=== PATIENT | female | born 1930 | race Asian ===

== ENCOUNTER 2018-07-29 15:25 | Inpatient (IN) | payer MEDICARE, OTHER ==
[2018-07-29 15:49] LABS: ADD MAN DIFF? NO
[2018-07-29 15:52] LABS: BASOPHIL # 0.1 10^3/ul (0.0-0.1); BASOPHILS % 0.7 % (0.0-2.0); EOSINOPHILS # 0.1 10^3/ul (0.0-0.5); EOSINOPHILS % 1.5 % (0.0-7.0); HEMATOCRIT 36.6 % (37.0-47.0); HEMOGLOBIN 11.5 g/dl (12.0-16.0); LYMPHOCYTES # 2.4 10^3/ul (0.8-2.9); MEAN CORPUSCULAR HEMOGLOBIN 29.3 pg (29.0-33.0); MEAN CORPUSCULAR HGB CONC 31.4 g/dl (32.0-37.0); MEAN CORPUSCULAR VOLUME 93.4 fl (82.0-101.0); MEAN PLATELET VOLUME 10.5 fl (7.4-10.4); MONOCYTE # 1.1 10^3/ul (0.3-0.9); MONOCYTES % 14.9 % (0.0-11.0); NEUTROPHIL # 3.8 10^3/ul (1.6-7.5); NEUTROPHILS % 50.6 % (39.0-77.0); PLATELET COUNT 150 10^3/UL (140-415); RED BLOOD COUNT 3.92 10^6/ul (4.20-5.40); RED CELL DISTRIBUTION WIDTH 13.2 % (11.5-14.5)
[2018-07-29 15:52] LABS: WHITE BLOOD COUNT 7.6 10^3/ul (4.8-10.8)
[2018-07-29] MEDS: DEXAMETHASONE 10 MG/ML 1 ML INJ IV (15:56)
[2018-07-29 16:09] LABS: ANION GAP 12 (5-13); BLOOD UREA NITROGEN 58 mg/dl (7-20); CALCIUM 8.2 mg/dl (8.4-10.2); CARBON DIOXIDE 16 mmol/L (21-31); CHLORIDE 111 mmol/L (97-110); CREATININE 2.68 mg/dl (0.44-1.00); GLUCOSE 173 mg/dl (70-220); SODIUM 139 mmol/L (135-144)
[2018-07-29 16:21] LABS: TROPONIN-I 0.014 ng/ml (0.000-0.120)
[2018-07-29] MEDS: SODIUM CHLORIDE 0.9% 1L BAG IV* (16:45)
[2018-07-29] MEDS: CEFTRIAXONE 1 GM/50 ML (PMX) 50 ML IVPB (17:00)
[2018-07-29] MEDS: AZITHROMYCIN 500MG/NS (PMX) 250 ML IV (17:25)
[2018-07-29] MEDS ORDERED: NACL 0.9% 3 ML SYG IV (19:00)
[2018-07-29] MEDS ORDERED: HYDROCODONE/APAP (5/325) TAB PO (19:00)
[2018-07-29 19:19] LABS: LACTIC ACID 3.1 mmol/L (0.5-2.0)
[2018-07-29] MEDS ORDERED: ACETAMINOPHEN 325 MG TAB PO (19:30)
[2018-07-29] MEDS ORDERED: ONDANSETRON 4 MG INJ IV (19:30)
[2018-07-29] MEDS: HEPARIN 5,000 UNIT/1 ML VIAL SC (21:00)
[2018-07-29 22:36] LABS: LACTIC ACID 4.5 mmol/L (0.5-2.0)
[2018-07-29] MEDS: SOD CHLORIDE 0.9% 500 ML IV (23:00)
[2018-07-30] MEDS: ALBUTEROL/IPRATROPIUM (NEB) 3 ML AMP HHN ×6 (04:31→21:05)
[2018-07-30 05:40] LABS: ADD MAN DIFF? NO
[2018-07-30 06:04] LABS: WHITE BLOOD COUNT 5.5 10^3/ul (4.8-10.8)
[2018-07-30 06:04] LABS: BASOPHILS % 0.2 % (0.0-2.0); HEMATOCRIT 32.3 % (37.0-47.0); HEMOGLOBIN 10.4 g/dl (12.0-16.0); LYMPHOCYTES # 1.1 10^3/ul (0.8-2.9); LYMPHOCYTES % 20.3 % (15.0-51.0); MEAN CORPUSCULAR HEMOGLOBIN 29.8 pg (29.0-33.0); MEAN CORPUSCULAR HGB CONC 32.2 g/dl (32.0-37.0); MEAN CORPUSCULAR VOLUME 92.6 fl (82.0-101.0); MEAN PLATELET VOLUME 11.1 fl (7.4-10.4); MONOCYTE # 0.2 10^3/ul (0.3-0.9); NEUTROPHIL # 4.1 10^3/ul (1.6-7.5); NEUTROPHILS % 75.1 % (39.0-77.0); PLATELET COUNT 143 10^3/UL (140-415); RED BLOOD COUNT 3.49 10^6/ul (4.20-5.40); RED CELL DISTRIBUTION WIDTH 13.3 % (11.5-14.5)
[2018-07-30 06:18] LABS: HEMOGLOBIN A1C 5.9 % (0-5.9)
[2018-07-30 06:28] LABS: ALANINE AMINOTRANSFERASE 26 IU/L (13-69); ALBUMIN 3.1 g/dl (3.3-4.9); ALBUMIN/GLOBULIN RATIO 0.86; ALKALINE PHOSPHATASE 84 IU/L (42-121); ANION GAP 11 (5-13); ASPARTATE AMINO TRANSFERASE 25 IU/L (15-46); BILIRUBIN,INDIRECT 0.1 mg/dl (0-1.1); BILIRUBIN,TOTAL 0.1 mg/dl (0.2-1.3); BLOOD UREA NITROGEN 48 mg/dl (7-20); CALCIUM 7.8 mg/dl (8.4-10.2); CARBON DIOXIDE 14 mmol/L (21-31); CHLORIDE 118 mmol/L (97-110); CREATININE 2.09 mg/dl (0.44-1.00); GLUCOSE 159 mg/dl (70-220); POTASSIUM 5.8 mmol/L (3.5-5.1); SODIUM 143 mmol/L (135-144); TOTAL PROTEIN 6.7 g/dl (6.1-8.1)
[2018-07-30 06:42] LABS: LACTIC ACID 2.4 mmol/L (0.5-2.0)
[2018-07-30] MEDS: SOD CHLORIDE 0.9% 500 ML IV (06:59)
[2018-07-30] MEDS: HEPARIN 5,000 UNIT/1 ML VIAL SC (09:00)
[2018-07-30] MEDS: AZITHROMYCIN 250 MG TAB PO (09:05)
[2018-07-30] MEDS: predniSONE 20 MG TAB PO (09:06)
[2018-07-30 12:00] LABS: LACTIC ACID 3.5 mmol/L (0.5-2.0)
[2018-07-30] MEDS: CEFTRIAXONE 1 GM/50 ML (PMX) 50 ML IVPB (16:06)
[2018-07-30] MEDS ORDERED: VANCOMYCIN IV PER PHARMACY XX (18:30)
[2018-07-30] MEDS: VANCOMYCIN HCL 1.25 GM in SOD CHLORIDE 0.9% 250 ML IVPB (20:29)
[2018-07-31] MEDS: ALBUTEROL/IPRATROPIUM (NEB) 3 ML AMP HHN ×6 (01:52→20:48)
[2018-07-31] MEDS: AZITHROMYCIN 250 MG TAB PO (09:05)
[2018-07-31] MEDS: predniSONE 20 MG TAB PO (09:05)
[2018-07-31] MEDS: CEFTRIAXONE 1 GM/50 ML (PMX) 50 ML IVPB (13:55)
[2018-08-01] MEDS: ALBUTEROL/IPRATROPIUM (NEB) 3 ML AMP HHN ×4 (01:58→23:28)
[2018-08-01 05:44] LABS: BLOOD UREA NITROGEN 53 mg/dl (7-20)
[2018-08-01 05:44] LABS: CREATININE 2.41 mg/dl (0.44-1.00)
[2018-08-01] MEDS ORDERED: MIDAZOLAM 1 MG/ML 2 ML INJ (07:00)
[2018-08-01] MEDS: AZITHROMYCIN 250 MG TAB PO (09:44)
[2018-08-01] MEDS: predniSONE 20 MG TAB PO (09:44)
[2018-08-01] MEDS: METOPROLOL (XL) 50 MG TAB PO (15:20)
[2018-08-01] MEDS: CEFTRIAXONE 1 GM/50 ML (PMX) 50 ML IVPB (15:20)
[2018-08-01] MEDS: LEVALBUTEROL (NEB) 0.31 MG/3 ML AMP HHN (19:38)
[2018-08-01] MEDS ORDERED: VANCOMYCIN 750 MG (PMX) 250 ML IVPB (20:00)
[2018-08-01] MEDS ORDERED: VANCOMYCIN 1 GM 250 ML IVPB (20:00)
[2018-08-01 21:28] LABS: ANION GAP 10 (5-13); BLOOD UREA NITROGEN 62 mg/dl (7-20); CARBON DIOXIDE 14 mmol/L (21-31); CHLORIDE 112 mmol/L (97-110); GLUCOSE 175 mg/dl (70-220); SODIUM 136 mmol/L (135-144)
[2018-08-01] MEDS: DEXTROSE 50% 50 ML SYRINGE IV (22:37)
[2018-08-01] MEDS: INSULIN REGULAR, HUMAN 100 UNIT/1 ML 3ML VIAL IVP (22:46)
[2018-08-01] MEDS: SODIUM POLYSTYRENE 15 GM KIT (POWDER + SORBITOL) PO (23:16)
[2018-08-01 23:31] LABS: AADO2 Arterial 24.8 mmHg (7.0-24.0); Arterial Blood Gas Oxygen Sat 98.4 mmHG (95.0-100.0); Arterial COHb 0.3 % (0.0-3.0); Arterial Fraction of Oxyhgb 97.9 % (93.0-99.0); Arterial HCO3 15.1 mmol/L (22.0-26.0); Arterial MetHb 0.2 % (0.0-1.5); Arterial pCO2 30.6 mmhg (35-45); MODE NASAL CANNULA; Site LB
[2018-08-02] MEDS: LEVALBUTEROL (NEB) 0.31 MG/3 ML AMP HHN ×4 (02:08→20:25)
[2018-08-02 06:15] LABS: WHITE BLOOD COUNT 10.1 10^3/ul (4.8-10.8)
[2018-08-02 06:15] LABS: HEMATOCRIT 30.7 % (37.0-47.0); HEMOGLOBIN 9.9 g/dl (12.0-16.0); MEAN CORPUSCULAR HEMOGLOBIN 29.6 pg (29.0-33.0); MEAN CORPUSCULAR HGB CONC 32.2 g/dl (32.0-37.0); MEAN CORPUSCULAR VOLUME 91.9 fl (82.0-101.0); MEAN PLATELET VOLUME 11.7 fl (7.4-10.4); PLATELET COUNT 156 10^3/UL (140-415); RED BLOOD COUNT 3.34 10^6/ul (4.20-5.40); RED CELL DISTRIBUTION WIDTH 13.4 % (11.5-14.5)
[2018-08-02 06:19] LABS: ADD MAN DIFF? YES; POSITIVE DIFF @See below
[2018-08-02 06:47] LABS: ANION GAP 8 (5-13); BLOOD UREA NITROGEN 64 mg/dl (7-20); CALCIUM 8.2 mg/dl (8.4-10.2); CARBON DIOXIDE 15 mmol/L (21-31); CHLORIDE 116 mmol/L (97-110); CREATININE 2.19 mg/dl (0.44-1.00); GLUCOSE 101 mg/dl (70-220); POTASSIUM 5.3 mmol/L (3.5-5.1); SODIUM 139 mmol/L (135-144)
[2018-08-02 06:48] LABS: BLOOD UREA NITROGEN 64 mg/dl (7-20)
[2018-08-02] MEDS ORDERED: ADENOSINE 3 MG/ML SYRINGE IV (07:00)
[2018-08-02 07:29] LABS: GIANT THROMBO% (M) 7 % (0-0); LYMPHOCYTES #M 1.9 10^3/ul (0.8-2.9); LYMPHOCYTES % (M) 19 % (15-51); MONOCYTE #M 0.2 10^3/ul (0.3-0.9); MONOCYTES % (M) 2 % (0-11); PLATELET ESTIMATE NORMAL; REACTIVE LYMPHOCYTES #M 0.1 10^3/ul (0.0-0.0); REACTIVE LYMPHOCYTES% (M) 1 % (0-0); SEGMENTED NEUTROPHILS (M) % 78 % (39-77); SMUDGE%M 7 % (0-0)
[2018-08-02] MEDS: predniSONE 20 MG TAB PO (08:01)
[2018-08-02] MEDS: AZITHROMYCIN 250 MG TAB PO (08:01)
[2018-08-02] MEDS: METOPROLOL (XL) 50 MG TAB PO (08:01)
[2018-08-02] MEDS: CEFTRIAXONE 1 GM/50 ML (PMX) 50 ML IVPB (15:58)
== END 2018-08-02 23:20 | disposition home or self-care (01) | DRG 191 ==
LOC: 6WM 08-01 14:02 → E/R 15:25 → 2NE 19:24
PROC: 5A2204Z Restoration of Cardiac Rhythm, Single (ICD-10-PCS; principal; 2018-08-01)
PROC: 4A033R1 Measurement of Arterial Saturation, Peripheral, Percutaneous Approach (ICD-10-PCS; 2018-08-01)
DX: J44.1 Chronic obstructive pulmonary disease with (acute) exacerbation (principal); E87.2 Acidosis; I69.351 Hemiplegia and hemiparesis following cerebral infarction affecting right dominant side; I47.1 Supraventricular tachycardia; I12.9 Hypertensive chronic kidney disease with stage 1 through stage 4 chronic kidney disease, or unspecified chronic kidney disease; N18.3 Chronic kidney disease, stage 3 (moderate); E11.22 Type 2 diabetes mellitus with diabetic chronic kidney disease
CPT/HCPCS: 36600; 71045; 80048; 80053; 82565; 82803; 82962; 83036; 83605; 84484; 84520; 85025; 87040-91; 93005; 94640; 94664; 96361; 96365; 96367; 96375; 97161; 99285-25

== ENCOUNTER 2018-08-24 02:14 | Inpatient (IN) | payer MEDICARE, OTHER ==
[2018-08-24] MEDS: SOD CHLORIDE 0.9% 500 ML IV (02:45)
[2018-08-24 02:53] LABS: ADD MAN DIFF? NO
[2018-08-24 03:01] LABS: BASOPHIL # 0.1 10^3/ul (0.0-0.1); BASOPHILS % 0.6 % (0.0-2.0); EOSINOPHILS # 0.4 10^3/ul (0.0-0.5); EOSINOPHILS % 3.5 % (0.0-7.0); HEMATOCRIT 35.5 % (37.0-47.0); HEMOGLOBIN 11.2 g/dl (12.0-16.0); LYMPHOCYTES # 2.9 10^3/ul (0.8-2.9); LYMPHOCYTES % 26.7 % (15.0-51.0); MEAN CORPUSCULAR HEMOGLOBIN 29.3 pg (29.0-33.0); MEAN CORPUSCULAR HGB CONC 31.5 g/dl (32.0-37.0); MEAN CORPUSCULAR VOLUME 92.9 fl (82.0-101.0); MEAN PLATELET VOLUME 10.5 fl (7.4-10.4); MONOCYTE # 0.8 10^3/ul (0.3-0.9); MONOCYTES % 7.3 % (0.0-11.0); NEUTROPHIL # 6.7 10^3/ul (1.6-7.5); NEUTROPHILS % 61.2 % (39.0-77.0); PLATELET COUNT 418 10^3/UL (140-415); RED BLOOD COUNT 3.82 10^6/ul (4.20-5.40); RED CELL DISTRIBUTION WIDTH 12.7 % (11.5-14.5)
[2018-08-24 03:01] LABS: WHITE BLOOD COUNT 10.9 10^3/ul (4.8-10.8)
[2018-08-24 03:10] LABS: ADD UMIC YES; UR ASCORBIC ACID NEGATIVE (NEGATIVE); UR BILIRUBIN (Dip) NEGATIVE (NEGATIVE); UR BLOOD (Dip) NEGATIVE (NEGATIVE); UR CLARITY CLEAR (CLEAR); UR COLOR YELLOW (YELLOW); UR GLUCOSE (Dip) 1+ mg/dL (NEGATIVE); UR KETONES (Dip) NEGATIVE (NEGATIVE); UR LEUKOCYTE ESTERASE (Dip) NEGATIVE Leu/ul (NEGATIVE); UR NITRITE (Dip) NEGATIVE (NEGATIVE); UR RBC 0 /HPF (0-5); UR SPECIFIC GRAVITY (Dip) 1.012 (1.003-1.030); UR TOTAL PROTEIN (Dip) 1+ mg/dl (NEGATIVE); UR UROBILINOGEN (Dip) NEGATIVE (NEGATIVE); UR WBC 0 /HPF (0-5)
[2018-08-24 03:17] LABS: ALANINE AMINOTRANSFERASE 13 IU/L (13-69); ALBUMIN 3.8 g/dl (3.3-4.9); ALBUMIN/GLOBULIN RATIO 0.86; ALKALINE PHOSPHATASE 93 IU/L (42-121); ANION GAP 11 (5-13); ASPARTATE AMINO TRANSFERASE 27 IU/L (15-46); BILIRUBIN,INDIRECT 0.2 mg/dl (0-1.1); BILIRUBIN,TOTAL 0.2 mg/dl (0.2-1.3); BLOOD UREA NITROGEN 42 mg/dl (7-20); CALCIUM 8.7 mg/dl (8.4-10.2); CARBON DIOXIDE 20 mmol/L (21-31); CHLORIDE 112 mmol/L (97-110); CREATININE 2.04 mg/dl (0.44-1.00); GLUCOSE 112 mg/dl (70-220); SODIUM 143 mmol/L (135-144); TOTAL PROTEIN 8.2 g/dl (6.1-8.1)
[2018-08-24 03:29] LABS: TROPONIN-I 0.023 ng/ml (0.000-0.120)
[2018-08-24] MEDS ORDERED: ACETAMINOPHEN 325 MG TAB PO ×2 (06:00→11:00)
[2018-08-24] MEDS ORDERED: ONDANSETRON 4 MG INJ IV ×2 (06:00→11:00)
[2018-08-24] MEDS: SOD CHLORIDE 0.9% 1,000 ML IV ×2 (06:17→22:27)
[2018-08-24] MEDS: LABETALOL HCL 20MG INJ IV (10:09)
[2018-08-24] MEDS: OLANZAPINE (ODT) 5 MG TAB ODT (10:56)
[2018-08-24] MEDS ORDERED: LOSARTAN 50 MG TAB PO (11:00)
[2018-08-24] MEDS ORDERED: NACL 0.9% 3 ML SYG IV (11:00)
[2018-08-24] MEDS ORDERED: METOPROLOL (XL) 50 MG TAB PO (11:00)
[2018-08-24] MEDS: METOPROLOL (XL) 50 MG TAB PO (13:07)
[2018-08-24] MEDS ORDERED: ALBUTEROL 0.083% (NEB) 2.5 MG/3 ML AMP HHN (13:30)
[2018-08-24 13:49] LABS: FREE T4 (FREE THYROXINE) 1.73 ng/dl (0.85-1.93)
[2018-08-24 13:55] LABS: HEMOGLOBIN A1C 5.4 % (0-5.9)
[2018-08-24 14:19] LABS: CREATINE KINASE 42 IU/L (23-200)
[2018-08-24 14:33] LABS: CK INDEX 1.6; CK-MB 0.69 ng/ml (0.0-2.4); TROPONIN-I 0.019 ng/ml (0.000-0.120)
[2018-08-24] MEDS: LORAZEPAM 2 MG INJ IV (14:40)
[2018-08-24] MEDS: ARFORMOTEROL TARTRATE 15MCG/2 ML AMP INH (19:24)
[2018-08-24] MEDS: BUDESONIDE (NEB) 0.5MG/2ML AMP INH (19:24)
[2018-08-24] MEDS: HEPARIN 5,000 UNIT/1 ML VIAL SC (21:27)
[2018-08-24] MEDS: ATORVASTATIN 10 MG TAB PO (21:28)
[2018-08-24] MEDS: OLANZAPINE 5 MG TAB PO (22:22)
[2018-08-24] MEDS ORDERED: VANCOMYCIN IV PER PHARMACY XX (22:30)
[2018-08-24] MEDS: VANCOMYCIN HCL 1.25 GM in SOD CHLORIDE 0.9% 250 ML IVPB (23:57)
[2018-08-25 05:41] LABS: ADD MAN DIFF? NO
[2018-08-25 05:49] LABS: BASOPHIL # 0.1 10^3/ul (0.0-0.1); BASOPHILS % 0.6 % (0.0-2.0); EOSINOPHILS # 0.3 10^3/ul (0.0-0.5); EOSINOPHILS % 2.9 % (0.0-7.0); HEMATOCRIT 36.3 % (37.0-47.0); HEMOGLOBIN 11.3 g/dl (12.0-16.0); LYMPHOCYTES # 2.4 10^3/ul (0.8-2.9); LYMPHOCYTES % 21.4 % (15.0-51.0); MEAN CORPUSCULAR HEMOGLOBIN 29.2 pg (29.0-33.0); MEAN CORPUSCULAR HGB CONC 31.1 g/dl (32.0-37.0); MEAN CORPUSCULAR VOLUME 93.8 fl (82.0-101.0); MEAN PLATELET VOLUME 10.2 fl (7.4-10.4); MONOCYTE # 0.8 10^3/ul (0.3-0.9); MONOCYTES % 7.2 % (0.0-11.0); NEUTROPHIL # 7.5 10^3/ul (1.6-7.5); NEUTROPHILS % 67.1 % (39.0-77.0); PLATELET COUNT 378 10^3/UL (140-415); RED BLOOD COUNT 3.87 10^6/ul (4.20-5.40); RED CELL DISTRIBUTION WIDTH 12.9 % (11.5-14.5)
[2018-08-25 05:49] LABS: WHITE BLOOD COUNT 11.2 10^3/ul (4.8-10.8)
[2018-08-25 06:08] LABS: CHOL/HDL RATIO 7.7 RATIO; CHOLESTEROL 233 mg/dl (100-200); HDL CHOLESTEROL 30 mg/dl (33-92); LDL CHOLESTEROL,CALCULATED 133 mg/dl; TRIGLYCERIDES 352 mg/dl (0-149)
[2018-08-25 06:09] LABS: CREATINE KINASE 70 IU/L (23-200)
[2018-08-25 06:16] LABS: CK INDEX 3.2; CK-MB 2.22 ng/ml (0.0-2.4); TROPONIN-I 0.037 ng/ml (0.000-0.120)
[2018-08-25 06:18] LABS: ALANINE AMINOTRANSFERASE 8 IU/L (13-69); ALBUMIN 3.8 g/dl (3.3-4.9); ALBUMIN/GLOBULIN RATIO 0.88; ALKALINE PHOSPHATASE 104 IU/L (42-121); ANION GAP 11 (5-13); ASPARTATE AMINO TRANSFERASE 23 IU/L (15-46); BILIRUBIN,INDIRECT 0.3 mg/dl (0-1.1); BILIRUBIN,TOTAL 0.3 mg/dl (0.2-1.3); BLOOD UREA NITROGEN 33 mg/dl (7-20); CALCIUM 8.8 mg/dl (8.4-10.2); CARBON DIOXIDE 22 mmol/L (21-31); CHLORIDE 113 mmol/L (97-110); CREATININE 1.94 mg/dl (0.44-1.00); GLUCOSE 114 mg/dl (70-220); POTASSIUM 4.4 mmol/L (3.5-5.1); SODIUM 146 mmol/L (135-144); TOTAL PROTEIN 8.1 g/dl (6.1-8.1)
[2018-08-25] MEDS: ARFORMOTEROL TARTRATE 15MCG/2 ML AMP INH ×2 (08:38→19:40)
[2018-08-25] MEDS: BUDESONIDE (NEB) 0.5MG/2ML AMP INH ×2 (08:38→19:40)
[2018-08-25] MEDS: HEPARIN 5,000 UNIT/1 ML VIAL SC ×2 (09:00→20:08)
[2018-08-25] MEDS: CHOLECALCIFEROL 1,000 UNIT TAB PO (10:01)
[2018-08-25] MEDS: FISH OIL 1,000 MG CAP PO ×2 (10:02→20:13)
[2018-08-25] MEDS: DEXTROSE 5% 1,000 ML IV (10:02)
[2018-08-25] MEDS: ASPIRIN (EC) 81 MG TAB PO (10:03)
[2018-08-25 13:26] LABS: SODIUM,URINE RANDOM 118 mmol/L (30-90)
[2018-08-25 13:26] LABS: CREATININE,URINE RANDOM 30.97 mg/dl (20-320)
[2018-08-25] MEDS: ATORVASTATIN 40 MG TAB PO (20:13)
[2018-08-26] MEDS: DEXTROSE 5% 1,000 ML IV (05:40)
[2018-08-26 06:28] LABS: ADD MAN DIFF? NO
[2018-08-26 06:30] LABS: BASOPHIL # 0.1 10^3/ul (0.0-0.1); BASOPHILS % 0.8 % (0.0-2.0); EOSINOPHILS # 0.4 10^3/ul (0.0-0.5); EOSINOPHILS % 3.5 % (0.0-7.0); HEMATOCRIT 34.7 % (37.0-47.0); HEMOGLOBIN 10.9 g/dl (12.0-16.0); LYMPHOCYTES # 3.1 10^3/ul (0.8-2.9); LYMPHOCYTES % 28.2 % (15.0-51.0); MEAN CORPUSCULAR HEMOGLOBIN 28.7 pg (29.0-33.0); MEAN CORPUSCULAR HGB CONC 31.4 g/dl (32.0-37.0); MEAN CORPUSCULAR VOLUME 91.3 fl (82.0-101.0); MEAN PLATELET VOLUME 10.4 fl (7.4-10.4); MONOCYTE # 1.3 10^3/ul (0.3-0.9); MONOCYTES % 11.8 % (0.0-11.0); NEUTROPHILS % 54.8 % (39.0-77.0); PLATELET COUNT 319 10^3/UL (140-415)
[2018-08-26 06:30] LABS: WHITE BLOOD COUNT 10.9 10^3/ul (4.8-10.8)
[2018-08-26 06:58] LABS: ANION GAP 11 (5-13); BLOOD UREA NITROGEN 32 mg/dl (7-20); CALCIUM 8.4 mg/dl (8.4-10.2); CARBON DIOXIDE 19 mmol/L (21-31); CHLORIDE 113 mmol/L (97-110); CREATININE 1.97 mg/dl (0.44-1.00); GLUCOSE 101 mg/dl (70-220); PHOSPHORUS 4.3 mg/dl (2.5-4.9); POTASSIUM 4.7 mmol/L (3.5-5.1); SODIUM 143 mmol/L (135-144)
[2018-08-26] MEDS: BUDESONIDE (NEB) 0.5MG/2ML AMP INH ×2 (08:32→20:12)
[2018-08-26] MEDS: ARFORMOTEROL TARTRATE 15MCG/2 ML AMP INH ×2 (08:32→20:00)
[2018-08-26] MEDS: METOPROLOL (XL) 50 MG TAB PO (08:55)
[2018-08-26] MEDS: CHOLECALCIFEROL 1,000 UNIT TAB PO (08:55)
[2018-08-26] MEDS: ASPIRIN (EC) 81 MG TAB PO (08:55)
[2018-08-26] MEDS: HEPARIN 5,000 UNIT/1 ML VIAL SC ×2 (08:56→20:59)
[2018-08-26] MEDS: FISH OIL 1,000 MG CAP PO ×2 (08:56→21:15)
[2018-08-26 15:42] LABS: CREATININE, RANDOM URINE 34 mg/dL (20-275); MICROALBUMIN 38.7 mg/dL; MICROALBUMIN/CREATININE RATIO 1138 (<30)
[2018-08-26] MEDS: AMPICILLIN/SULB 1.5GM/NS (PMX) 50 ML IVPB (17:59)
[2018-08-26] MEDS ORDERED: HALOPERIDOL 5 MG INJ (20:41)
[2018-08-26] MEDS: HALOPERIDOL 5 MG INJ IM (20:43)
[2018-08-26] MEDS: ATORVASTATIN 40 MG TAB PO (21:15)
[2018-08-26] MEDS ORDERED: VANCOMYCIN 1 GM 250 ML IVPB (23:00)
[2018-08-27] MEDS: DEXTROSE 5% 1,000 ML IV ×3 (01:30→22:28)
[2018-08-27 05:43] LABS: ADD MAN DIFF? NO
[2018-08-27 05:49] LABS: WHITE BLOOD COUNT 10.8 10^3/ul (4.8-10.8)
[2018-08-27 05:49] LABS: BASOPHIL # 0.1 10^3/ul (0.0-0.1); BASOPHILS % 0.7 % (0.0-2.0); EOSINOPHILS # 0.4 10^3/ul (0.0-0.5); EOSINOPHILS % 3.3 % (0.0-7.0); HEMATOCRIT 31.3 % (37.0-47.0); LYMPHOCYTES # 2.3 10^3/ul (0.8-2.9); LYMPHOCYTES % 21.7 % (15.0-51.0); MEAN CORPUSCULAR HEMOGLOBIN 29.6 pg (29.0-33.0); MEAN CORPUSCULAR HGB CONC 31.9 g/dl (32.0-37.0); MEAN CORPUSCULAR VOLUME 92.6 fl (82.0-101.0); MEAN PLATELET VOLUME 10.2 fl (7.4-10.4); MONOCYTE # 1.1 10^3/ul (0.3-0.9); MONOCYTES % 9.9 % (0.0-11.0); NEUTROPHIL # 6.9 10^3/ul (1.6-7.5); NEUTROPHILS % 63.8 % (39.0-77.0); PLATELET COUNT 290 10^3/UL (140-415); RED BLOOD COUNT 3.38 10^6/ul (4.20-5.40); RED CELL DISTRIBUTION WIDTH 12.9 % (11.5-14.5)
[2018-08-27 06:14] LABS: ANION GAP 10 (5-13); BLOOD UREA NITROGEN 28 mg/dl (7-20); CALCIUM 8.6 mg/dl (8.4-10.2); CARBON DIOXIDE 21 mmol/L (21-31); CHLORIDE 112 mmol/L (97-110); CREATININE 1.83 mg/dl (0.44-1.00); GLUCOSE 119 mg/dl (70-220); PHOSPHORUS 4.2 mg/dl (2.5-4.9); POTASSIUM 4.4 mmol/L (3.5-5.1); SODIUM 143 mmol/L (135-144)
[2018-08-27] MEDS: ARFORMOTEROL TARTRATE 15MCG/2 ML AMP INH ×2 (08:08→20:48)
[2018-08-27] MEDS: BUDESONIDE (NEB) 0.5MG/2ML AMP INH ×2 (08:08→20:58)
[2018-08-27] MEDS: ASPIRIN (EC) 81 MG TAB PO (09:00)
[2018-08-27] MEDS: FISH OIL 1,000 MG CAP PO ×2 (09:00→21:04)
[2018-08-27] MEDS: HEPARIN 5,000 UNIT/1 ML VIAL SC ×2 (09:00→21:00)
[2018-08-27] MEDS: CHOLECALCIFEROL 1,000 UNIT TAB PO (09:00)
[2018-08-27] MEDS: METOPROLOL (XL) 50 MG TAB PO (09:00)
[2018-08-27] MEDS ORDERED: clonAZEPAM 0.5 MG TAB PO (14:00)
[2018-08-27] MEDS: AMPICILLIN/SULB 1.5GM/NS (PMX) 50 ML IVPB (17:05)
[2018-08-27] MEDS: ATORVASTATIN 40 MG TAB PO (21:04)
[2018-08-28] MEDS: HALOPERIDOL 5 MG INJ IM (03:39)
[2018-08-28] MEDS: BUDESONIDE (NEB) 0.5MG/2ML AMP INH ×2 (08:15→20:03)
[2018-08-28] MEDS: ARFORMOTEROL TARTRATE 15MCG/2 ML AMP INH ×2 (08:25→20:03)
[2018-08-28] MEDS: ASPIRIN (EC) 81 MG TAB PO (08:47)
[2018-08-28] MEDS: METOPROLOL (XL) 50 MG TAB PO (08:47)
[2018-08-28] MEDS: FISH OIL 1,000 MG CAP PO ×2 (08:47→20:59)
[2018-08-28] MEDS: CHOLECALCIFEROL 1,000 UNIT TAB PO (08:47)
[2018-08-28] MEDS: HEPARIN 5,000 UNIT/1 ML VIAL SC ×2 (08:50→20:59)
[2018-08-28 09:23] LABS: ADD MAN DIFF? NO
[2018-08-28 09:35] LABS: BASOPHIL # 0.1 10^3/ul (0.0-0.1); BASOPHILS % 0.8 % (0.0-2.0); EOSINOPHILS # 0.2 10^3/ul (0.0-0.5); EOSINOPHILS % 1.8 % (0.0-7.0); HEMATOCRIT 34.1 % (37.0-47.0); LYMPHOCYTES # 2.4 10^3/ul (0.8-2.9); LYMPHOCYTES % 21.1 % (15.0-51.0); MEAN CORPUSCULAR HEMOGLOBIN 29.3 pg (29.0-33.0); MEAN CORPUSCULAR HGB CONC 32.3 g/dl (32.0-37.0); MEAN CORPUSCULAR VOLUME 90.7 fl (82.0-101.0); MEAN PLATELET VOLUME 10.5 fl (7.4-10.4); MONOCYTE # 0.9 10^3/ul (0.3-0.9); MONOCYTES % 8.2 % (0.0-11.0); NEUTROPHIL # 7.6 10^3/ul (1.6-7.5); NEUTROPHILS % 67.5 % (39.0-77.0); PLATELET COUNT 258 10^3/UL (140-415); RED BLOOD COUNT 3.76 10^6/ul (4.20-5.40); RED CELL DISTRIBUTION WIDTH 13.2 % (11.5-14.5)
[2018-08-28 09:35] LABS: WHITE BLOOD COUNT 11.2 10^3/ul (4.8-10.8)
[2018-08-28 09:51] LABS: ANION GAP 10 (5-13); BLOOD UREA NITROGEN 29 mg/dl (7-20); CALCIUM 8.5 mg/dl (8.4-10.2); CARBON DIOXIDE 22 mmol/L (21-31); CHLORIDE 112 mmol/L (97-110); CREATININE 2.02 mg/dl (0.44-1.00); GLUCOSE 127 mg/dl (70-220); PHOSPHORUS 4.5 mg/dl (2.5-4.9); POTASSIUM 4.6 mmol/L (3.5-5.1); SODIUM 144 mmol/L (135-144)
[2018-08-28] MEDS: AMPICILLIN/SULB 1.5GM/NS (PMX) 50 ML IVPB (17:41)
[2018-08-28] MEDS: ATORVASTATIN 40 MG TAB PO (20:59)
[2018-08-29 06:15] LABS: ADD MAN DIFF? NO
[2018-08-29 06:16] LABS: WHITE BLOOD COUNT 12.2 10^3/ul (4.8-10.8)
[2018-08-29 06:16] LABS: BASOPHIL # 0.1 10^3/ul (0.0-0.1); BASOPHILS % 0.7 % (0.0-2.0); EOSINOPHILS # 0.3 10^3/ul (0.0-0.5); EOSINOPHILS % 2.1 % (0.0-7.0); HEMATOCRIT 35.1 % (37.0-47.0); HEMOGLOBIN 11.3 g/dl (12.0-16.0); LYMPHOCYTES % 24.9 % (15.0-51.0); MEAN CORPUSCULAR HEMOGLOBIN 29.3 pg (29.0-33.0); MEAN CORPUSCULAR HGB CONC 32.2 g/dl (32.0-37.0); MEAN CORPUSCULAR VOLUME 90.9 fl (82.0-101.0); MEAN PLATELET VOLUME 10.5 fl (7.4-10.4); MONOCYTE # 1.2 10^3/ul (0.3-0.9); MONOCYTES % 9.8 % (0.0-11.0); NEUTROPHIL # 7.5 10^3/ul (1.6-7.5); NEUTROPHILS % 61.6 % (39.0-77.0); PLATELET COUNT 261 10^3/UL (140-415); RED BLOOD COUNT 3.86 10^6/ul (4.20-5.40); RED CELL DISTRIBUTION WIDTH 13.3 % (11.5-14.5)
[2018-08-29 06:53] LABS: ANION GAP 10 (5-13); BLOOD UREA NITROGEN 38 mg/dl (7-20); CALCIUM 8.5 mg/dl (8.4-10.2); CARBON DIOXIDE 20 mmol/L (21-31); CHLORIDE 113 mmol/L (97-110); CREATININE 2.03 mg/dl (0.44-1.00); GLUCOSE 101 mg/dl (70-220); POTASSIUM 4.4 mmol/L (3.5-5.1); SODIUM 143 mmol/L (135-144)
[2018-08-29 06:56] LABS: PHOSPHORUS 5.2 mg/dl (2.5-4.9)
[2018-08-29] MEDS: CHOLECALCIFEROL 1,000 UNIT TAB PO (08:39)
[2018-08-29] MEDS: FISH OIL 1,000 MG CAP PO ×2 (08:39→22:40)
[2018-08-29] MEDS: ASPIRIN (EC) 81 MG TAB PO (08:39)
[2018-08-29] MEDS: METOPROLOL (XL) 50 MG TAB PO (08:40)
[2018-08-29] MEDS: HEPARIN 5,000 UNIT/1 ML VIAL SC ×2 (08:42→21:00)
[2018-08-29] MEDS: ARFORMOTEROL TARTRATE 15MCG/2 ML AMP INH ×2 (08:45→20:56)
[2018-08-29] MEDS: BUDESONIDE (NEB) 0.5MG/2ML AMP INH ×2 (08:54→20:56)
[2018-08-29] MEDS: AMPICILLIN/SULB 1.5GM/NS (PMX) 50 ML IVPB (17:18)
[2018-08-29] MEDS: ATORVASTATIN 40 MG TAB PO (22:28)
[2018-08-30 06:22] LABS: ADD MAN DIFF? NO
[2018-08-30 06:32] LABS: BASOPHIL # 0.1 10^3/ul (0.0-0.1); BASOPHILS % 0.9 % (0.0-2.0); EOSINOPHILS # 0.2 10^3/ul (0.0-0.5); EOSINOPHILS % 1.7 % (0.0-7.0); HEMATOCRIT 32.2 % (37.0-47.0); HEMOGLOBIN 10.3 g/dl (12.0-16.0); LYMPHOCYTES # 3.5 10^3/ul (0.8-2.9); LYMPHOCYTES % 24.8 % (15.0-51.0); MEAN CORPUSCULAR HEMOGLOBIN 29.3 pg (29.0-33.0); MEAN CORPUSCULAR VOLUME 91.5 fl (82.0-101.0); MEAN PLATELET VOLUME 11.1 fl (7.4-10.4); MONOCYTE # 1.3 10^3/ul (0.3-0.9); MONOCYTES % 8.9 % (0.0-11.0); NEUTROPHILS % 63.1 % (39.0-77.0); PLATELET COUNT 248 10^3/UL (140-415); RED BLOOD COUNT 3.52 10^6/ul (4.20-5.40); RED CELL DISTRIBUTION WIDTH 13.2 % (11.5-14.5)
[2018-08-30 06:32] LABS: WHITE BLOOD COUNT 14.2 10^3/ul (4.8-10.8)
[2018-08-30 07:12] LABS: MAGNESIUM 2.1 mg/dl (1.7-2.5)
[2018-08-30 07:12] LABS: PHOSPHORUS 4.6 mg/dl (2.5-4.9)
[2018-08-30 07:18] LABS: ANION GAP 10 (5-13); BLOOD UREA NITROGEN 41 mg/dl (7-20); CALCIUM 8.9 mg/dl (8.4-10.2); CARBON DIOXIDE 21 mmol/L (21-31); CHLORIDE 112 mmol/L (97-110); GLUCOSE 103 mg/dl (70-220); POTASSIUM 4.6 mmol/L (3.5-5.1); SODIUM 143 mmol/L (135-144)
[2018-08-30] MEDS: HEPARIN 5,000 UNIT/1 ML VIAL SC (09:00)
[2018-08-30] MEDS: ASPIRIN (EC) 81 MG TAB PO (09:02)
[2018-08-30] MEDS: FISH OIL 1,000 MG CAP PO (09:02)
[2018-08-30] MEDS: CHOLECALCIFEROL 1,000 UNIT TAB PO (09:02)
[2018-08-30] MEDS: METOPROLOL (XL) 50 MG TAB PO (09:04)
[2018-08-30] MEDS: BUDESONIDE (NEB) 0.5MG/2ML AMP INH (09:07)
[2018-08-30] MEDS: ARFORMOTEROL TARTRATE 15MCG/2 ML AMP INH (09:07)
== END 2018-08-30 13:10 | disposition home or self-care (01) | DRG 92 ==
LOC: E/R 02:14 → PP2 05:47
DX: G92 Toxic encephalopathy (principal); I69.351 Hemiplegia and hemiparesis following cerebral infarction affecting right dominant side; N17.9 Acute kidney failure, unspecified; E87.2 Acidosis; E87.0 Hyperosmolality and hypernatremia; E11.22 Type 2 diabetes mellitus with diabetic chronic kidney disease; I12.9 Hypertensive chronic kidney disease with stage 1 through stage 4 chronic kidney disease, or unspecified chronic kidney disease; N18.3 Chronic kidney disease, stage 3 (moderate); J44.9 Chronic obstructive pulmonary disease, unspecified; Z74.01 Bed confinement status; D64.9 Anemia, unspecified; J01.90 Acute sinusitis, unspecified; H70.93 Unspecified mastoiditis, bilateral
CPT/HCPCS: 36415; 70450; 70551; 71045; 76775; 80048; 80053; 80061; 81001; 81003; 82043; 82306; 82550; 82553; 82652; 83036; 83605; 83735; 83970; 84100; 84155; 84300; 84439; 84443; 84484; 85025; 87040-91; 87086; 92526; 92610; 93005; 93306; 93880; 94640; 94664; 99285-25

== ENCOUNTER 2018-10-25 16:12 | Inpatient (IN) | payer MEDICARE, OTHER ==
[2018-10-25] MEDS: DILTIAZEM-D5W 125MG/125ML DRIP 125 ML IV (16:16)
[2018-10-25] MEDS: DILTIAZEM 25 MG INJ IV (16:23)
[2018-10-25] MEDS: MAGNESIUM SULFATE 2 GM/50 ML 50 ML IVPB (16:31)
[2018-10-25] MEDS: ASPIRIN 300 MG SUPP PR (16:31)
[2018-10-25] MEDS: SOD CHLORIDE 0.9% 1,000 ML IV (16:31)
[2018-10-25 17:43] LABS: ADD MAN DIFF? NO
[2018-10-25 17:46] LABS: BASOPHILS % 0.2 % (0.0-2.0); EOSINOPHILS # 0.1 10^3/ul (0.0-0.5); EOSINOPHILS % 0.8 % (0.0-7.0); HEMATOCRIT 35.6 % (37.0-47.0); HEMOGLOBIN 11.5 g/dl (12.0-16.0); LYMPHOCYTES # 1.6 10^3/ul (0.8-2.9); LYMPHOCYTES % 10.1 % (15.0-51.0); MEAN CORPUSCULAR HEMOGLOBIN 30.3 pg (29.0-33.0); MEAN CORPUSCULAR HGB CONC 32.3 g/dl (32.0-37.0); MEAN CORPUSCULAR VOLUME 93.7 fl (82.0-101.0); MEAN PLATELET VOLUME 11.8 fl (7.4-10.4); MONOCYTE # 1.2 10^3/ul (0.3-0.9); MONOCYTES % 7.6 % (0.0-11.0); NEUTROPHIL # 12.6 10^3/ul (1.6-7.5); NEUTROPHILS % 80.6 % (39.0-77.0); RED CELL DISTRIBUTION WIDTH 13.3 % (11.5-14.5)
[2018-10-25 17:46] LABS: WHITE BLOOD COUNT 15.6 10^3/ul (4.8-10.8)
[2018-10-25 17:48] LABS: PLATELET COUNT 128 10^3/UL (140-415); POSITIVE DIFF @See below
[2018-10-25 18:07] LABS: ANION GAP 9 (5-13); BLOOD UREA NITROGEN 63 mg/dl (7-20); CALCIUM 7.3 mg/dl (8.4-10.2); CARBON DIOXIDE 13 mmol/L (21-31); CHLORIDE 117 mmol/L (97-110); GLUCOSE 121 mg/dl (70-220); POTASSIUM 4.4 mmol/L (3.5-5.1); SODIUM 139 mmol/L (135-144)
[2018-10-25 18:20] LABS: B-TYPE NATRIURETIC PEPTIDE 3490 PG/ML (0-450); TROPONIN-I 0.036 ng/ml (0.000-0.120)
[2018-10-25 18:25] LABS: FREE THYROXINE INDEX (Calc) 3.41 ug/ml (0.65-3.89); T3 UPTAKE 53.3 % (23.5-40.5); T4 (THYROXINE) 6.4 ug/dl (5.5-11.0)
[2018-10-25 18:38] LABS: THYROID STIMULATING HORMONE 0.709 MIU/L (0.465-4.680)
[2018-10-25] MEDS ORDERED: ACETAMINOPHEN 325 MG TAB PO ×2 (19:00→20:00)
[2018-10-25] MEDS ORDERED: ONDANSETRON 4 MG INJ IV (19:00)
[2018-10-25 19:46] LABS: PT RATIO 1.1
[2018-10-25 19:54] LABS: INR 1.03
[2018-10-25 19:55] LABS: PARTIAL THROMBOPLASTIN TIME 35.3 Sec (23.0-35.0); PROTIME 13.7 Sec (11.9-14.9)
[2018-10-25 19:56] LABS: D-DIMER 722.78 ng/ml (<460)
[2018-10-25] MEDS ORDERED: NACL 0.9% 3 ML SYG IV (20:00)
[2018-10-25] MEDS ORDERED: ONDANSETRON 4 MG TAB PO (20:00)
[2018-10-25] MEDS ORDERED: morphine 2 MG INJ IV (20:00)
[2018-10-25 23:45] LABS: CREATINE KINASE 36 IU/L (23-200)
[2018-10-25 23:57] LABS: CK INDEX 6.6; CK-MB 2.39 ng/ml (0.0-2.4)
[2018-10-26 06:42] LABS: ADD MAN DIFF? NO
[2018-10-26 06:47] LABS: BASOPHIL # 0.1 10^3/ul (0.0-0.1); BASOPHILS % 0.5 % (0.0-2.0); EOSINOPHILS # 0.2 10^3/ul (0.0-0.5); EOSINOPHILS % 1.5 % (0.0-7.0); HEMATOCRIT 38.4 % (37.0-47.0); LYMPHOCYTES % 20.8 % (15.0-51.0); MEAN CORPUSCULAR HEMOGLOBIN 29.2 pg (29.0-33.0); MEAN CORPUSCULAR HGB CONC 31.3 g/dl (32.0-37.0); MEAN CORPUSCULAR VOLUME 93.4 fl (82.0-101.0); MEAN PLATELET VOLUME 11.5 fl (7.4-10.4); MONOCYTE # 1.1 10^3/ul (0.3-0.9); MONOCYTES % 7.8 % (0.0-11.0); NEUTROPHIL # 9.9 10^3/ul (1.6-7.5); PLATELET COUNT 203 10^3/UL (140-415); RED BLOOD COUNT 4.11 10^6/ul (4.20-5.40); RED CELL DISTRIBUTION WIDTH 13.5 % (11.5-14.5)
[2018-10-26 06:47] LABS: WHITE BLOOD COUNT 14.4 10^3/ul (4.8-10.8)
[2018-10-26 07:01] LABS: HEMOGLOBIN A1C 5.5 % (0-5.9)
[2018-10-26 07:15] LABS: ALANINE AMINOTRANSFERASE 24 IU/L (13-69); ALBUMIN 3.1 g/dl (3.3-4.9); ALBUMIN/GLOBULIN RATIO 0.88; ALKALINE PHOSPHATASE 99 IU/L (42-121); ANION GAP 10 (5-13); ASPARTATE AMINO TRANSFERASE 19 IU/L (15-46); BILIRUBIN,INDIRECT 0.3 mg/dl (0-1.1); BILIRUBIN,TOTAL 0.3 mg/dl (0.2-1.3); BLOOD UREA NITROGEN 58 mg/dl (7-20); CALCIUM 8.7 mg/dl (8.4-10.2); CARBON DIOXIDE 17 mmol/L (21-31); CHLORIDE 114 mmol/L (97-110); CREATININE 2.05 mg/dl (0.44-1.00); GLUCOSE 120 mg/dl (70-220); MAGNESIUM 2.8 mg/dl (1.7-2.5); PHOSPHORUS 4.4 mg/dl (2.5-4.9); POTASSIUM 4.7 mmol/L (3.5-5.1); SODIUM 141 mmol/L (135-144); TOTAL PROTEIN 6.6 g/dl (6.1-8.1)
[2018-10-26 07:25] LABS: CREATINE KINASE 39 IU/L (23-200)
[2018-10-26 07:35] LABS: CK INDEX 8.4; CK-MB 3.29 ng/ml (0.0-2.4)
[2018-10-26 07:36] LABS: TROPONIN-I 0.433 ng/ml (0.000-0.120)
[2018-10-26 07:43] LABS: THYROID STIMULATING HORMONE 0.856 MIU/L (0.465-4.680)
[2018-10-26] MEDS: ASPIRIN (EC) 81 MG TAB PO ×2 (08:59→13:09)
[2018-10-26] MEDS: LOSARTAN 50 MG TAB PO (09:00)
[2018-10-26] MEDS: METOPROLOL (XL) 50 MG TAB PO (09:00)
[2018-10-26 12:52] LABS: TROPONIN-I 0.257 ng/ml (0.000-0.120)
[2018-10-26] MEDS: ATORVASTATIN 40 MG TAB PO (20:07)
[2018-10-26] MEDS: APIXABAN 5 MG TABLET PO (20:07)
[2018-10-26] MEDS: DRONEDARONE HYDROCHLORIDE 400 MG TAB PO (20:07)
[2018-10-26 21:06] LABS: TROPONIN-I 0.185 ng/ml (0.000-0.120)
[2018-10-27 03:20] LABS: ADD MAN DIFF? NO
[2018-10-27 03:22] LABS: BASOPHIL # 0.1 10^3/ul (0.0-0.1); BASOPHILS % 0.5 % (0.0-2.0); EOSINOPHILS # 0.3 10^3/ul (0.0-0.5); EOSINOPHILS % 2.6 % (0.0-7.0); HEMATOCRIT 35.9 % (37.0-47.0); HEMOGLOBIN 11.4 g/dl (12.0-16.0); LYMPHOCYTES % 22.7 % (15.0-51.0); MEAN CORPUSCULAR HEMOGLOBIN 30.2 pg (29.0-33.0); MEAN CORPUSCULAR HGB CONC 31.8 g/dl (32.0-37.0); MEAN PLATELET VOLUME 11.2 fl (7.4-10.4); MONOCYTE # 1.2 10^3/ul (0.3-0.9); MONOCYTES % 9.1 % (0.0-11.0); NEUTROPHIL # 8.5 10^3/ul (1.6-7.5); NEUTROPHILS % 64.7 % (39.0-77.0); PLATELET COUNT 180 10^3/UL (140-415); RED BLOOD COUNT 3.78 10^6/ul (4.20-5.40); RED CELL DISTRIBUTION WIDTH 13.2 % (11.5-14.5)
[2018-10-27 03:22] LABS: WHITE BLOOD COUNT 13.2 10^3/ul (4.8-10.8)
[2018-10-27 03:47] LABS: ALANINE AMINOTRANSFERASE 20 IU/L (13-69); ALBUMIN 2.7 g/dl (3.3-4.9); ALBUMIN/GLOBULIN RATIO 0.84; ALKALINE PHOSPHATASE 75 IU/L (42-121); ANION GAP 6 (5-13); ASPARTATE AMINO TRANSFERASE 18 IU/L (15-46); BILIRUBIN,INDIRECT 0.3 mg/dl (0-1.1); BILIRUBIN,TOTAL 0.3 mg/dl (0.2-1.3); BLOOD UREA NITROGEN 59 mg/dl (7-20); CALCIUM 8.4 mg/dl (8.4-10.2); CARBON DIOXIDE 17 mmol/L (21-31); CHLORIDE 116 mmol/L (97-110); CREATININE 2.12 mg/dl (0.44-1.00); GLUCOSE 99 mg/dl (70-220); POTASSIUM 5.1 mmol/L (3.5-5.1); SODIUM 139 mmol/L (135-144); TOTAL PROTEIN 5.9 g/dl (6.1-8.1)
[2018-10-27 03:50] LABS: PHOSPHORUS 4.2 mg/dl (2.5-4.9)
[2018-10-27 03:50] LABS: MAGNESIUM 2.6 mg/dl (1.7-2.5)
[2018-10-27 03:56] LABS: TROPONIN-I 0.172 ng/ml (0.000-0.120)
[2018-10-27 03:56] LABS: B-TYPE NATRIURETIC PEPTIDE 16600 PG/ML (0-450)
[2018-10-27 04:11] LABS: FREE T4 (FREE THYROXINE) 1.93 ng/dl (0.85-1.93)
[2018-10-27] MEDS ORDERED: ASPIRIN (EC) 81 MG TAB PO (09:00)
[2018-10-27] MEDS: LOSARTAN 50 MG TAB PO (09:00)
[2018-10-27] MEDS: APIXABAN 5 MG TABLET PO ×2 (09:23→20:25)
[2018-10-27] MEDS: CITRIC ACID/NA CITRATE 30 ML CUP PO ×2 (09:26→20:25)
[2018-10-27] MEDS: METOPROLOL (XL) 50 MG TAB PO (09:26)
[2018-10-27] MEDS: DRONEDARONE HYDROCHLORIDE 400 MG TAB PO ×2 (09:26→17:55)
[2018-10-27 10:50] LABS: ADD UMIC YES; UR ASCORBIC ACID NEGATIVE (NEGATIVE); UR BACTERIA FEW /HPF (NONE SEEN); UR BILIRUBIN (Dip) NEGATIVE (NEGATIVE); UR BLOOD (Dip) 1+ mg/dL (NEGATIVE); UR CLARITY SLIGHTLY CLOUDY (CLEAR); UR COLOR YELLOW (YELLOW); UR GLUCOSE (Dip) NEGATIVE (NEGATIVE); UR KETONES (Dip) NEGATIVE (NEGATIVE); UR LEUKOCYTE ESTERASE (Dip) TRACE Leu/ul (NEGATIVE); UR NITRITE (Dip) NEGATIVE (NEGATIVE); UR RBC 2 /HPF (0-5); UR SPECIFIC GRAVITY (Dip) 1.013 (1.003-1.030); UR TOTAL PROTEIN (Dip) 2+ mg/dl (NEGATIVE); UR UROBILINOGEN (Dip) NEGATIVE (NEGATIVE); UR WBC 4 /HPF (0-5)
[2018-10-27 11:40] LABS: SODIUM,URINE RANDOM 112 mmol/L (30-90)
[2018-10-27] MEDS: ATORVASTATIN 40 MG TAB PO (20:25)
[2018-10-28 07:43] LABS: ADD MAN DIFF? NO
[2018-10-28 07:45] LABS: WHITE BLOOD COUNT 14.3 10^3/ul (4.8-10.8)
[2018-10-28 07:45] LABS: BASOPHIL # 0.1 10^3/ul (0.0-0.1); BASOPHILS % 0.6 % (0.0-2.0); EOSINOPHILS # 0.4 10^3/ul (0.0-0.5); EOSINOPHILS % 2.5 % (0.0-7.0); HEMATOCRIT 37.6 % (37.0-47.0); LYMPHOCYTES # 2.7 10^3/ul (0.8-2.9); LYMPHOCYTES % 18.5 % (15.0-51.0); MEAN CORPUSCULAR HEMOGLOBIN 30.2 pg (29.0-33.0); MEAN CORPUSCULAR HGB CONC 31.9 g/dl (32.0-37.0); MEAN CORPUSCULAR VOLUME 94.5 fl (82.0-101.0); MEAN PLATELET VOLUME 11.4 fl (7.4-10.4); MONOCYTES % 6.9 % (0.0-11.0); NEUTROPHIL # 10.2 10^3/ul (1.6-7.5); NEUTROPHILS % 70.9 % (39.0-77.0); PLATELET COUNT 208 10^3/UL (140-415); RED BLOOD COUNT 3.98 10^6/ul (4.20-5.40); RED CELL DISTRIBUTION WIDTH 13.2 % (11.5-14.5)
[2018-10-28 08:26] LABS: CHOLESTEROL 177 mg/dl (100-200)
[2018-10-28 08:26] LABS: CHOL/HDL RATIO 9.3 RATIO; HDL CHOLESTEROL 19 mg/dl (33-92); LDL CHOLESTEROL,CALCULATED 113 mg/dl; TRIGLYCERIDES 223 mg/dl (0-149)
[2018-10-28 08:58] LABS: ANION GAP 11 (5-13); BLOOD UREA NITROGEN 68 mg/dl (7-20); CALCIUM 8.8 mg/dl (8.4-10.2); CARBON DIOXIDE 15 mmol/L (21-31); CHLORIDE 113 mmol/L (97-110); CREATININE 2.34 mg/dl (0.44-1.00); GLUCOSE 93 mg/dl (70-220); POTASSIUM 5.4 mmol/L (3.5-5.1); SODIUM 139 mmol/L (135-144)
[2018-10-28] MEDS: CITRIC ACID/NA CITRATE 30 ML CUP PO (09:14)
[2018-10-28] MEDS: APIXABAN 5 MG TABLET PO (09:15)
[2018-10-28] MEDS: METOPROLOL (XL) 25 MG TAB PO (09:17)
[2018-10-28] MEDS: LOSARTAN 50 MG TAB PO (09:17)
[2018-10-28] MEDS: DRONEDARONE HYDROCHLORIDE 400 MG TAB PO ×2 (09:17→18:42)
[2018-10-28] MEDS: NA POLYST SULFON 15 GM/60 ML BTL PO (10:02)
[2018-10-28 15:08] LABS: ANION GAP 9 (5-13); BLOOD UREA NITROGEN 69 mg/dl (7-20); CALCIUM 8.7 mg/dl (8.4-10.2); CARBON DIOXIDE 17 mmol/L (21-31); CHLORIDE 114 mmol/L (97-110); CREATININE 2.11 mg/dl (0.44-1.00); GLUCOSE 133 mg/dl (70-220); POTASSIUM 5.1 mmol/L (3.5-5.1); SODIUM 140 mmol/L (135-144)
[2018-10-28 16:02] LABS: CREATININE, RANDOM URINE 54 mg/dL (20-275); MICROALBUMIN/CREATININE RATIO 463 (<30)
== END 2018-10-28 20:40 | disposition home or self-care (01) | DRG 683 ==
LOC: E/R 16:12 → TEL 18:32
DX: I12.9 Hypertensive chronic kidney disease with stage 1 through stage 4 chronic kidney disease, or unspecified chronic kidney disease (principal); E87.2 Acidosis; I69.351 Hemiplegia and hemiparesis following cerebral infarction affecting right dominant side; N18.4 Chronic kidney disease, stage 4 (severe); I48.0 Paroxysmal atrial fibrillation; R07.9 Chest pain, unspecified; Z74.01 Bed confinement status; J44.9 Chronic obstructive pulmonary disease, unspecified; D64.9 Anemia, unspecified
CPT/HCPCS: 36415; 71045; 78582; 80048; 80053; 80061; 81001; 81003; 82043; 82550; 82553; 83036; 83735; 83880; 84100; 84155; 84300; 84436; 84439; 84443; 84479; 84484; 85025; 85378; 85610; 85730; 93005; 93306; 93970; 96374; 96375; 97162; 97166; 99285-25